=== PATIENT | female | born 1990 | race Caucasian/White ===

== ENCOUNTER 2019-03-02 12:21 | Outpatient (CLI) | payer MEDICAID ==
[~2019-03-02] VITALS: Ht 142.2 cm; Wt 62.0 kg
[2019-03-02] MEDS ORDERED: HYDR250V5 IM (12:37)
[2019-03-02 12:38] VITALS: BP 98/57; PULSE 100; RESP 18; Ht 142.2 cm; Wt 62.0 kg
--- NOTE | 2019-03-02 15:00 | PN ---
Triage Information Date/Time March 02, 2019 Reason for visit: Sent in from clinic for observation of arrhythmia Weeks of Gestation 27 weeks /Para 3 para 2 Diabetes: none Hypertention: none Objective Vital Signs Date Temp Pulse Resp B/P (MAP) Pulse Ox O2 O2 Flow FiO2 Time Delivery Rate 03/02/19 98.8 100 18 98/57 (71) Room Air 12:38 Heart Rate: 150's Heart Rate Comments Reactive arrhythmia is confirmed Results/Medications Imaging Results Normal biophysical profile. There is no evidence of ascites. Disposition: Discharge Assessment/Plan arrhythmia which was diagnosed recently We will check for lupus and a clinic Perinatologist contacted agreed to follow the patient as outpatient on a bike biweekly basis for antepartum testing Perinatologist recommended echocardiogram which is going to be done in 2 weeks ZENON HARTMAN MD March 02, 2019 15:00
--- NOTE | 2019-03-02 15:28 | TRIAGE ---
OB Triage Datetime Report Generated by CPN: 03/02/2019 15:28 Datetime: 03/02/2019 13:26 Stage of : OB Triage Maternal Assessment Level of Consciousness: Fully Conscious Labor Evaluation Frequency: NONE Monitor Mode: External Resting Tone [place]: Relaxed Heart Rate FHR Baseline Rate: 125 Monitor Mode: External US Variability: Moderate 6-25 bpm Accelerations: 15X15 Decelerations: None Category: Category I Pain Assessment Pain Scale: 0 Pain Goal: 3 Vaginal Exam Membrane Status: Intact Vaginal Bleeding: None Datetime: 03/02/2019 12:35 Assessment Type: Triage Maternal Assessment Level of Consciousness: Fully Conscious DTR's/Clonus: DTRs 2+; No Clonus Headache: Denies Blurred Vision: No Respiratory Effort: Unlabored; Regular Rhythm; Equal Expansion Breath Sounds, Left: Clear and Equal Breath Sounds, Right: Clear and Equal Nausea/Vomiting: Denies RUQ Epigastric Pain: Denies Lower Extremities Edema: None Degree: None Upper Extremities Edema: None Degree: None Facial Edema: None Fall Risk Assessment History of Falling: (0) No Secondary Diagnosis: (0) No Ambulatory Aid: (0) Bedrest/Nurse Assist IV Therapy: (0) No Gait: (0) Normal/Bedrest/Immobile Mental Status: (0) Oriented to Own Ability Fall Score: 0 Fall Risk Score Definition: No Risk: No action required Datetime: 03/02/2019 12:34 Time of Arrival: 03/02/2019 12:07 EGA: 27.5 Arrived By: Ambulatory Arrived From: Office Chief Complaint: pt. sent from CLINIC FOR EVAL OF AUDIBLE ARRTHMIA Movement: Present Contractions: Denies/Absent Rupture of Membranes: Denies Vaginal Bleeding: None Vaginal Discharge: Denies Recent Sexual Intercouse: Denies Abdominal Trauma: Not Applicable Patient Complaints: None Time Provider Notified: 03/02/2019 13:00 Provider Notified: ANA Initial Plan: NST/BPP Datetime: 03/02/2019 12:33 Monitor Mode: External Monitor Mode: External US
== END 2019-03-02 15:38 | disposition home or self-care (01) ==
LOC: L-D 12:21 → OBT 12:21
PROVIDERS: ATTEND Obstetrics & Gynecology
DX: O76 Abnormality in fetal heart rate and rhythm complicating labor and delivery (principal); Z3A.27 27 weeks gestation of pregnancy
CPT/HCPCS: 76818; Z7500; G0463